=== PATIENT | female | born 1985 | race Caucasian/White ===

== ENCOUNTER 2018-07-15 09:24 | Emergency (ER) | END 2018-07-15 10:54 | disposition home or self-care (01) ==

== ENCOUNTER 2018-12-17 20:49 | Emergency (ER) | payer MEDICAID, OTHER ==
[~2018-12-17] VITALS: Wt 117.0 kg
[~2018-12-17 20:49] MED LIST: CALC600T5 PO; FERR-31 PO; FOLI-49 PO; GUAI-637 PO; IBUP-1542 PO; PRENAT PO; SODI126M NASAL
[2018-12-17 20:57] VITALS: BP 126/80; PULSE 94; RESP 18
[2018-12-18] MEDS ORDERED: MED4DP PO (00:25)
[2018-12-18] MEDS ORDERED: NAPR-985 PO (00:25)
--- NOTE | 2018-12-18 03:25 | ERD ---
ER Documentation Chief Complaint Chief Complaint L WRIST PAIN X'S 10 DAYS; DENIES TRAUMA HPI 33-year-old female presenting with pain to her left wrist. Patient states is been going for the last 10 days. She is right-hand dominant. Took 800 mg of ibuprofen. She is been wearing a brace which seems to help however pain is persistent. She states the pain is worse with movement and she feels it extends down her left thumb. Denies other medical problems. NKDA. Surgical history denies. Social history denies ROS All systems reviewed and are negative except as per history of present illness. Medications Home Meds Active Scripts Naproxen* (Naprosyn*) 500 Mg Tablet, 500 MG PO BID PRN for PAIN AND/OR INFLAMMATION, #30 TAB Prov:ANKUR LÓPEZ PA-C 12/18/18 Methylprednisolone* (Medrol* DOSE PACK) 4 Mg/Dose-Pack Tab.ds.pk, 4 MG PO . DIRECTED, #1 PACKET Prov:ANKUR LÓPEZ PA-C 12/18/18 Ibuprofen* (Motrin*) 600 Mg Tab, 600 MG PO Q6H PRN for PAIN AND OR ELEVATED TEM P, #30 TAB Prov:RAY KITCHEN. CONFORMAL PAD FORMER 07/15/18 Guaifenesin* (Robitussin*) 100 Mg/5 Ml Syrup, 200 MG PO Q6H PRN for COUGH, #120 ML Prov:RAY KITCHEN. CONFORMAL PAD FORMER 07/15/18 Sodium Chloride (Saline Nasal Mist) 126 Ml Mist, 2 SPRAY NASAL Q2H PRN for NASAL CONGESTION, #1 BOTTLE Prov:RAY KITCHEN. CONFORMAL PAD FORMER 07/15/18 Reported Medications Folic Acid* (Folic Acid*) 1 Mg Tablet, 1 MG PO DAILY, TAB 05/31/15 Calcium Carbonate (CALCIUM) 600 Mg Tablet, 600 MG PO DAILY 05/31/15 Ferrous Sulfate (Iron Supplement) 1 Tab Tablet, 1 TAB PO DAILY 05/31/15 Multivit/Min/Fol Ac/Iron/Pren* ( S*) 1 Tab Tab, 1 TAB PO DAILY, TAB 05/31/15 Allergies Allergies: Coded Allergies: No Known Allergy (Unverified , 07/15/18) PMhx/Soc Medical and Surgical Hx: pt denies Medical Hx, pt denies Surgical Hx Hx Alcohol Use: No Hx Substance Use: No Hx Tobacco Use: No Smoking Status: Never smoker FmHx Family History: No diabetes, No coronary disease, No other Physical Exam Vitals Vital Signs Date Temp Pulse Resp B/P (MAP) Pulse Ox O2 O2 Flow FiO2 Time Delivery Rate 12/17/18 97.8 94 18 126/80 96 20:57 (95) Physical Exam GENERAL: The patient is well-appearing, well-nourished, in no acute distress CHEST: Clear to auscultation bilaterally. There are no rales, wheezes or rhonchi. HEART: Regular rate and rhythm. No murmurs, clicks, rubs or gallops. EXTREMITIES: Tender to palpation down left thumb and tendon. Positive Steve test. [employer] strength within normal limits and normal range of motion of the thumb. No snuffbox tenderness. NEUROLOGIC: Alert and oriented. Cranial nerves II through XII intact. Motor strength in all 4 extremities with 5 out of 5 strength. Sensation grossly intact. Normal speech and gait. SKIN: There is no apparent rash or petechiae. The skin is warm and dry. Procedures/MDM DIAGNOSTIC IMAGING REPORT Patient: JERICA BRANNON : 1985 Age: 33 Sex: F MR #: [id number] DOS: 12/17/182235 Ordering MD: BALDO LÓPEZ PA-C Location: [facility] Room/Bed: PROCEDURE: Left wrist. CLINICAL INDICATION: Pain. TECHNIQUE: 4 views including PA, lateral and oblique views were performed. COMPARISON: None. FINDINGS: There is no fracture, dislocation or bone destruction. The joint spaces are within normal limits. Bone mineralization is within normal limits. There is no radiopaque foreign body or abnormal calcification. IMPRESSION: No evidence of fracture. 33-year-old female presenting with findings consistent with de Quervain's tenosynovitis. I have low suspicion for acute fracture dislocation.M: I have low suspicion for tendon or ligament rupture. Patient has an overuse injury and inflammation of the tendon is recommended to rest. Patient is told if symptoms change or worsen to return immediately to the ER. All questions answered at discharge Departure Diagnosis: Primary Impression: De Quervain's tenosynovitis Condition: Stable Patient Instructions: De Quervain Tenosynovitis Referrals: COMMUNITY CLINICS YOU HAVE RECEIVED A MEDICAL SCREENING EXAM AND THE RESULTS INDICATE THAT YOU DO NOT HAVE A CONDITION THAT REQUIRES URGENT TREATMENT IN THE EMERGENCY DEPARTMENT. FURTHER EVALUATION AND TREATMENT OF YOUR CONDITION CAN WAIT UNTIL YOU ARE SEEN IN YOUR DOCTORS OFFICE WITHIN THE NEXT 1-2 DAYS. IT IS YOUR RESPONSIBILITY TO MAKE AN APPOINTMENT FOR FOLOW-UP CARE. IF YOU HAVE A PRIMARY DOCTOR --you should call your primary doctor and schedule an appointment IF YOU DO NOT HAVE A PRIMARY DOCTOR YOU CAN CALL OUR PHYSICIAN REFERRAL HOTLINE AT IF YOU CAN NOT AFFORD TO SEE A PHYSICIAN YOU CAN CHOSE FROM THE FOLLOWING [facility] CL[facility]ICS [facility] [address] [facility] [facility] [address] [facility] [facility] [address] [facility] [facility] [address] [facility]. [facility] [address] [facility]. [facility] [address] Additional Instructions: FOLLOW UP WITH YOUR PRIMARY CARE PHYSICIAN TOMORROW.Return to this facility if you are not improving as expected. ANKUR LÓPEZ PA-C Dec 18, 2018 03:25
== END 2018-12-18 00:41 | disposition home or self-care (01) ==
LOC: FTE 20:49
DX: M65.4 Radial styloid tenosynovitis [de Quervain] (principal)
CPT/HCPCS: 73110; Z7502